=== PATIENT | female | born 1955 | race American Indian/Alaskan Native ===

== ENCOUNTER → 2016-11-20 | Outpatient (CLI) | payer BC ==
[~2016-11-20] MED LIST: ALBU0.63 NEB; BUDE10.22 INH; CETI10CA PO; MONT10TA6 PO; SINCALIDE (KINEVAC) 5 MCG ONE; TIOT18CA INH
== END | disposition home or self-care (01) ==
LOC: PETCFH 08:37
PROVIDERS: ATTEND Nurse Practitioner Family
DX: K82.8 Other specified diseases of gallbladder (principal); G89.29 Other chronic pain
CPT/HCPCS: 78227; A9537; J2805

== ENCOUNTER → 2018-05-06 | Outpatient (CLI) | payer BC ==
[~2018-05-06] MED LIST changes: -SINCALIDE (KINEVAC) 5 MCG ONE
[2018-05-06 12:33] LABS: HCT (SEDRATE) 39.6 % (34.6-47.8)
[2018-05-06 12:36] LABS: BASOPHILS # (AUTO) 0.05 x10^3/uL (0-0.1); BASOPHILS % (AUTO) 1 % (0-1); EOSINOPHILS # (AUTO) 0.43 x10^3/uL (0-0.4); EOSINOPHILS % (AUTO) 6 % (1-7); LYMPHOCYTES # (AUTO) 2.17 x10^3/uL (1-3.4); LYMPHOCYTES % (AUTO) 29 % (22-44); MD NO; MEAN CORPUSCULAR HEMOGLOBIN 30.7 pg (27.0-34.8); MEAN CORPUSCULAR HGB CONC 33.5 g/dL (32.4-35.8); MEAN CORPUSCULAR VOLUME 91.7 fL (80-100); MEAN PLATELET VOLUME 9.3 fL (7.4-10.4); MONOCYTES # (AUTO) 0.73 x10^3/uL (0.2-0.8); MONOCYTES % (AUTO) 10 % (2-9); NEUTROPHILS # (AUTO) 4.01 x10^3/uL (1.8-6.8); NEUTROPHILS % (AUTO) 54 % (42-75); PLATELET COUNT 284 x10^3/uL (130-400); RED CELL DISTRIBUTION WIDTH 12.7 % (9.6-15.2)
[2018-05-06 13:00] LABS: ALANINE AMINOTRANSFERASE 49 U/L (12-78); ALBUMIN 3.6 g/dL (3.4-5.0); ANION GAP 7 mmol/L (5-15); CALCIUM 8.8 mg/dL (8.5-10.1); CHLORIDE 109 mmol/L (98-107); CHOLESTEROL, TOTAL 157 mg/dL (140-239); CREATININE 0.81 mg/dL (0.55-1.02); TRIGLYCERIDES 57 mg/dL (50-200); VLDL CHOLESTEROL 11 mg/dL (0-25)
[2018-05-06 13:02] LABS: ALKALINE PHOSPHATASE 118 U/L (45-117); BILIRUBIN,TOTAL 0.5 mg/dL (0.2-1.0); CHOL/HDL RATIO 2.1; HDL CHOL % 47 % (28-40); HDL CHOLESTEROL (DIRECT) 74 mg/dL (40-60); LDL CHOLESTEROL,CALCULATED 72 mg/dL (54-169); TOTAL PROTEIN 7.7 g/dL (6.4-8.2)
== END | disposition home or self-care (01) ==
LOC: CFH 09:03
PROVIDERS: ATTEND Family Medicine
DX: M19.041 Primary osteoarthritis, right hand (principal); M19.042 Primary osteoarthritis, left hand; E78.5 Hyperlipidemia, unspecified
CPT/HCPCS: 36415; 80053; 80061; 84550; 85025; 85651; 86038; 86430

== ENCOUNTER 2018-06-15 14:59 | Emergency (ER) | payer BC, OTHER ==
[~2018-06-15] VITALS: Ht 147.3 cm; Wt 68.8 kg
[2018-06-15] MEDS ORDERED: HYDROcodone/APAP 5/325 TABLET ONE (15:22)
[2018-06-15] MEDS ORDERED: HYDROcodone/APAP 5/325 TABLET PO PRN (15:30)
[2018-06-15] MEDS ORDERED: BACITRACIN ZINC OINT 500U/GM, 0.9 GM ONE (16:06)
[2018-06-15 16:38] VITALS: BP 124/84
== END 2018-06-15 16:41 | disposition home or self-care (01) ==
LOC: ED 16:35
DX: S63.522A Sprain of radiocarpal joint of left wrist, initial encounter (principal); S63.521A Sprain of radiocarpal joint of right wrist, initial encounter; S60.212A Contusion of left wrist, initial encounter; S60.211A Contusion of right wrist, initial encounter; J45.909 Unspecified asthma, uncomplicated; W01.0XXA Fall on same level from slipping, tripping and stumbling without subsequent striking against object, initial encounter; Y93.01 Activity, walking, marching and hiking; Y92.89 Other specified places as the place of occurrence of the external cause; Y99.8 Other external cause status
CPT/HCPCS: 29125; 29260; 99284

== ENCOUNTER 2019-04-09 05:58 | Emergency (ER) | payer BC, OTHER ==
[~2019-04-09] VITALS: Ht 147.3 cm; Wt 68.8 kg
[2019-04-09 08:36] VITALS: BP 124/83
== END 2019-04-09 08:37 | disposition home or self-care (01) ==
LOC: ED 08:10
DX: R51 Headache (principal)
CPT/HCPCS: 36415; 70450; 80048; 81003; 82040; 85025; 85651; 86140; 93005; 96374; 96375; 99284; J1200; J1885; J2765